=== PATIENT | female | born 1975 | race Caucasian/White ===

== ENCOUNTER 2016-09-06 10:57 | Day surgery (SDC) | payer MEDICAID ==
[2016-09-03 17:05] VITALS: BMI 28.5
[2016-09-06] VITALS (10 sets, daily range): BP systolic 110–123; BP diastolic 64–73; PULSE 78–90; RESP 11–18; Ht 144.8 cm; Wt 57.5 kg
[~2016-09-06] VITALS: Ht 144.8 cm; Wt 57.5 kg
[~2016-09-06 10:57] MED LIST: DOCU-144 PO; HYDR-906 PO
[2016-09-06] MEDS ORDERED: CEFAZOLIN 2 GM/50 ML (PMX) 50 ML IVPB ONE (12:00)
[2016-09-06] MEDS ORDERED: SOD CHLORIDE 0.9% 1,000 ML IV SCH (12:00)
[2016-09-06 12:35] LABS: BASOPHILS % 0.4 % (0.0-2.0); EOSINOPHILS # 0.2 10^3/ul (0.0-0.5); EOSINOPHILS % 3.7 % (0.0-7.0); HEMATOCRIT 32.7 % (37.0-47.0); HEMOGLOBIN 11.3 g/dl (12.0-16.0); LYMPHOCYTES # 1.1 10^3/ul (0.8-2.9); LYMPHOCYTES % 24.6 % (15.0-51.0); MEAN CORPUSCULAR HEMOGLOBIN 31.2 pg (29.0-33.0); MEAN CORPUSCULAR HGB CONC 34.4 g/dl (32.0-37.0); MEAN CORPUSCULAR VOLUME 90.8 fl (82.0-101.0); MONOCYTE # 0.5 10^3/ul (0.3-0.9); NEUTROPHIL # 2.7 10^3/ul (1.6-7.5); NEUTROPHILS % 60.3 % (39.0-77.0); PLATELET COUNT 188 10^3/UL (140-440); RED BLOOD COUNT 3.61 10^6/ul (4.20-5.40); RED CELL DISTRIBUTION WIDTH 13.1 % (11.5-14.5); UNCORRECTED WBC 4.5 10^3/ul (4.8-10.8); WHITE BLOOD COUNT 4.5 10^3/ul (4.8-10.8)
[2016-09-06 12:38] LABS: CONDITION 1
[2016-09-06 12:41] LABS: INR 0.97; PROTIME 12.9 Sec (12.2-14.2)
[2016-09-06 12:42] LABS: PARTIAL THROMBOPLASTIN TIME 32.5 Sec (25.0-35.0)
[2016-09-06 12:49] LABS: POTASSIUM 4.3 mmol/L (3.5-5.1)
[2016-09-06 12:56] LABS: CALCIUM 9.8 mg/dl (8.4-10.2); CREATININE 0.62 mg/dl (0.44-1.00)
[2016-09-06] MEDS ORDERED: ROCURONIUM 50 MG INJ ONE (14:19)
[2016-09-06] MEDS ORDERED: FENTAnyl 50 MCG/ML VIAL ONE (14:19)
[2016-09-06] MEDS ORDERED: MIDAZOLAM 1 MG/ML 2 ML INJ ONE (14:19)
[2016-09-06] MEDS ORDERED: PROPOFOL 20 ML ONE ×2 (14:19→14:20)
[2016-09-06] MEDS ORDERED: ESMOLOL 10 ML ONE (14:43)
[2016-09-06] MEDS ORDERED: PHENYLephrine (100 MCG/ML) 5ML SYG ONE (14:44)
[2016-09-06] MEDS ORDERED: METOCLOPRAMIDE 10 MG INJ IV PRN (15:00)
[2016-09-06] MEDS ORDERED: EPHEDrine SULFATE 50 MG/5 ML SYG IV PRN (15:00)
[2016-09-06] MEDS ORDERED: LABETALOL HCL 20MG INJ IV PRN (15:00)
[2016-09-06] MEDS ORDERED: DIPHENHYDRAMINE 50 MG INJ IV PRN (15:00)
[2016-09-06] MEDS ORDERED: morphine (1 MG/ML) 10ML SYRINGE IV PRN ×3 (15:00)
[2016-09-06] MEDS ORDERED: HYDROmorphONE (0.2 MG/ML) 10ML SYG IV PRN ×3 (15:00)
[2016-09-06] MEDS ORDERED: ONDANSETRON 4 MG INJ IV PRN (15:00)
[2016-09-06] MEDS ORDERED: KETOROLAC 30 MG INJ ONE (15:02)
[2016-09-06] MEDS ORDERED: CEFAZOLIN 1 GM INJ ONE (15:02)
[2016-09-06] MEDS ORDERED: ONDANSETRON 4 MG INJ ONE (15:02)
[2016-09-06] MEDS ORDERED: DEXAMETHASONE 4 MG/ML 1 ML INJ ONE (15:02)
[2016-09-06] MEDS ORDERED: METOCLOPRAMIDE 10 MG INJ ONE (15:02)
[2016-09-06] MEDS ORDERED: NEOSTIGMINE 3 MG/3 ML SYRINGE ONE (15:33)
[2016-09-06] MEDS ORDERED: GLYCOPYRROLATE 0.4 MG INJ ONE (15:33)
--- NOTE | 2016-09-06 17:13 | OPR ---
DATE OF OPERATION: 09/06/2016 PREOPERATIVE DIAGNOSIS: History of left breast cancer, need for left reexcision partial mastectomy. POSTOPERATIVE DIAGNOSIS: History of left breast cancer, need for left reexcision partial mastectomy . OPERATION PERFORMED: Left reexcision partial mastectomy. ANESTHESIA: General. ANESTHESIOLOGIST: . SURGEON: Ihsan Epperson MD JORDAN MAN: Tolu Quiroz MD INDICATIONS FOR PROCEDURE: The patient is a 41-year-old female who presented with a locally advance d left breast cancer. She underwent neoadjuvant chemotherapy with good response. Subsequent surgic al resection revealed a small amount of residual cancer and the margins were inadequate medially and posteriorly. Therefore, the patient was counseled as to the need for reexcision partial mastectomy . She consented and was scheduled for surgery. DESCRIPTION OF PROCEDURE: The patient was brought to the operating theater, placed under general an esthesia. The left breast and axillary region were prepped and draped in usual sterile fashion. Pr evious surgical incisional scar was reincised with 15 blade scalpel. Subcutaneous tissue was dissec naye with cautery. A small seroma cavity was entered. A small amount of seroma fluid was suction ev acuated. While elevating skin edges and skin hooks, 180 degree circumferential resection of the med ial and deep portions of the biopsy cavity took place. Specimen was transected, oriented and sent f or permanent pathologic analysis. Dr. Epperson made the decision to take a small additional amount of posterior tissue. This was resected and sent for permanent pathologic analysis. The wound was irri gated. Minimal bleeding was controlled with cautery. A #10 flat Cyrus-[place] drain was then broug ht through the left mid axillary line, cut to size and laid within the wound. It was secured in wojciech ce with 2-0 nylon suture in the standard fashion and the skin was reapproximated with a 4-0 Vicryl s uture in subcuticular fashion. Benzoin and Steri-Strips were then applied. The patient tolerated th e procedure well. ESTIMATED BLOOD LOSS: 20 mL. COMPLICATIONS: None. The patient was transported in stable condition to the recovery room. Dictated By: IHSAN RATLIFF/NATALIIA Conf#: [id number] DID#: [id number]
[2016-09-06] MEDS ORDERED: OXYCODONE/ACETAMINOPHEN (5/325) TAB PO ONE (17:30)
== END 2016-09-06 17:50 | disposition home or self-care (01) ==
LOC: SDS 10:57
PROVIDERS: ATTEND Surgery Surgical Oncology
DX: Z85.3 Personal history of malignant neoplasm of breast (principal)
CPT/HCPCS: 19301; 80048; 84703; 85025; 85610; 85730; 88305; J0690; J1100; J1885; J2250; J2405; J2710; J2765; J3010; Z7512; Z7610; J2370

== ENCOUNTER → 2016-11-05 | Outpatient (CLI) | payer MEDICAID ==
--- NOTE | 2016-11-05 15:58 | RADRPT ---
PROCEDURE: Nuclear medicine whole-body bone scan CLINICAL INDICATION: History of breast cancer TECHNIQUE: 23.7 mCi of technetium-99m MDP was administered intravenously. Planar imaging of the w hole-body was performed in the anterior and posterior views. Spot images were obtained as well. Im ages were reviewed on the high resolution PACS workstation. COMPARISON: None available FINDINGS: There is normal uptake throughout the appendicular and axial skeleton. Normal physiologic activity is seen within the kidneys and bladder. Increase activity in the large joints of the body are seen as well consistent with degenerative disease. No abnormal hypermetabolic focus is identified to aundrea guillermo neoplasm. IMPRESSION: 1. Negative whole body bone scan. 2. No evidence for neoplastic disease. RPTAT: PP .Ryan Braden MD, Date Time Electronically viewed and signed by .Ryan Braden MD, MD on 11/05/2016 15:58 .B/
== END | disposition home or self-care (01) ==
LOC: NUC 11:33
PROVIDERS: ATTEND Surgery Surgical Oncology
DX: C50.919 Malignant neoplasm of unspecified site of unspecified female breast (principal)
CPT/HCPCS: 78306; A9503

== ENCOUNTER → 2018-02-16 | Outpatient (CLI) | END | disposition home or self-care (01) ==